=== PATIENT | female | born 1980 ===

== ENCOUNTER → 2019-01-14 21:52 | Outpatient (ROUT) | payer OTHER, SELFPAY ==
[2019-01-14 23:36] LABS: Add Manual Diff / Slide Review NO; Basophils Absolute Auto 100 /uL (0-100); Eosinophils Absolute Auto 100 /uL (0-450); Eosinophils Percent Auto 0.6 % (2-4); Hematocrit 43.7 % (36-46); Hemoglobin 14.4 g/dL (12.0-16.0); Lymphocytes Absolute Auto 1900 /uL (1100-4500); Lymphocytes Percent Auto 20.5 % (25-40); Mean Corpuscular Hemoglobin 29.1 PG (26-34); Mean Corpuscular Volume 88.4 fL (80-100); Monocytes Absolute Auto 700 /uL (0-900); Monocytes Percent Auto 7.1 % (3-14); Neutrophils Absolute Auto 6600 /uL (1500-7000); Neutrophils Percent Auto 70.8 % (50-75); Platelet Count 350 X10^3/uL (150-400); Red Blood Cell Count 4.94 X10^6/uL (4.0-5.2); Red Cell Distribution Width 12.9 % (11.6-14.8); White Blood Cell Count 9.3 X10^3/uL (4.5-11.0)
[2019-01-15 03:54] LABS: Alanine Aminotransferase 29 IU/L (9-52); Albumin 4.5 g/dL (3.5-5.0); Albumin Globulin Ratio 1.4 (1.0-2.8); Alkaline Phosphatase 84 U/L (38-126); Aspartate Aminotransferase 17 IU/L (14-36); BUN Creatinine Ratio 17.5 (6-22); Bilirubin Total 0.2 mg/dL (0.2-1.3); Blood Urea Nitrogen 14 mg/dL (7-17); Calcium 10.1 mg/dL (8.4-10.2); Carbon Dioxide 24 mmol/L (22-32); Chloride 99 mmol/L (98-107); Estimated Glomerular Filt Rate > 60.0 mL/min (>60); Globulin 3.2 g/dL (1.7-4.1); Glucose 86 mg/dL (70-100); HEMOLYSIS < 15 (0-50); Potassium 4.9 mmol/L (3.4-5.1); Sodium 136 mmol/L (137-145); Total Protein 7.7 g/dL (6.3-8.2)
[2019-01-15 04:02] LABS: Progesterone, Total 5.52 ng/mL
[2019-01-15 04:08] LABS: Free T4, Direct Thyroxine 1.12 ng/dL (0.78-2.19)
[2019-01-15 04:22] LABS: Thyroid Stimulating Hormone 1.91 uIU/mL (0.47-4.68)
[2019-01-15 04:28] LABS: Ferritin 86.3 ng/mL (6.27-137)
== END ==
PROVIDERS: Internal Medicine Cardiovascular Disease; Visit Provider Naturopath
DX: N95.1 Menopausal and female climacteric states (principal); R63.5 Abnormal weight gain; R53.83 Other fatigue; Z13.89 Encounter for screening for other disorder; Z90.710 Acquired absence of both cervix and uterus
CPT/HCPCS: 36415; 80053; 82627; 82672; 82728; 84144; 84270; 84402; 84403; 84439; 84443; 84481; 85025